=== PATIENT | male | born 1975 | race African-American/Black ===

== ENCOUNTER 2024-12-26 18:30 | Emergency (ER) | payer OTHER, SELFPAY ==
[2024-12-26] MEDS ORDERED: Ibuprofen 200 MG TAB ONE (19:23)
[2024-12-26 19:37] LABS: #Basophils 0.0 thou/uL (0.0-0.2); #Eosinophils 0.1 thou/uL (0.0-0.7); #Lymphocytes 1.7 thou/uL (1.20-3.40); #Monocytes 0.2 thou/uL (0.11-0.59); #Neutrophils 2.9 thou/uL (1.40-6.50); %Basophils 0.5 % (0.0-1.0); %Eosinophils 1.9 % (0.0-10.0); %Lymphocytes 34.4 % (21.0-51.0); %Monocytes 4.8 % (0.0-10.0); %Neutrophils 58.4 % (42.0-75.0); Hematocrit 42.7 % (42.0-52.0); Hemoglobin 15.5 g/dL (14.0-18.0); Mean Corpuscular Hemoglobin 30.6 pg (27.0-31.0); Mean Corpuscular Volume 84.5 fl (78.0-98.0); Platelet Count 198 10x3/uL (130-400); Red Blood Cell (RBC) Count 5.05 mill/uL (4.70-6.10); White Blood Cell (WBC) Count 5.0 10x3/uL (4.8-10.8)
[2024-12-26 19:40] LABS: ALT (SGPT) 20 U/L (Less than 45); AST (SGOT) 27 U/L (11-34); Albumin 4.0 g/dL (3.1-4.5); Alkaline Phosphatase 48 U/L (40-110); Anion Gap 15 mmol/L (10-20); BUN (Urea Nitrogen) 5 mg/dL (8.9-20.6); Bilirubin, Total 0.7 mg/dL (0.3-1.2); Calc. Creatinine Clearance 0 mL/min (70-130); Calcium 8.6 mg/dL (7.8-10.44); Carbon Dioxide 35 mmol/L (22-29); Chloride 92 mmol/L (98-107); Globulin 4.2 g/dL (2.4-3.5); Glucose 316 mg/dL (70-105); Magnesium 1.2 mg/dL (1.6-2.6); Sodium 139 mmol/L (136-145)
[2024-12-26 19:42] LABS: Potassium 2.5 mmol/L (3.5-5.1)
[2024-12-26 19:43] LABS: Bicarbonate (HCO3v) 37.3 mmol/L (22.0-28.0); CO2 Tension (PvCO2) 58.1 mmHg (42.0-51.0); Calcium, Ionized 1.08 mmol/L (1.15-1.33); Chloride 94 mmol/L (98-107); Hemoglobin - Calc 14.8 g/dL (14.0-18.0); Potassium 2.4 mmol/L (3.5-5.1); Sodium 141 mmol/L (138-145); T. Carbon Dioxide 39.1 mmol/L (22.0-28.0); vO2 Saturation-calc 53.3 % (60.0-85.0)
[2024-12-26 19:49] LABS: Glucose, Urine (Dipstick) >=1000 mg/dL (Negative); Leukocyte Negative (Negative); Protein, Urine (Dipstick) 100 mg/dL (Neg-Trace); Specific Gravity, Urine 1.010 (1.005-1.030)
[2024-12-26] MEDS ORDERED: cloNIDine 0.1 MG TAB ONE (19:53)
[2024-12-26 20:01] LABS: CAUTI Indications for Culture Dysuria,urgency,freq; RBC/HPF None Seen HPF (0-3); WBC/HPF 0-3 HPF (0-3)
[2024-12-26 20:02] LABS: Urine Culture Reflex No No
[2024-12-26] MEDS ORDERED: NS 0.9% w/ 20 MEQ KCL 1,000 ML ONE (20:11)
== END 2024-12-26 22:38 | disposition home or self-care (01) ==
LOC: NAV ERS 18:30
DX: E10.65 Type 1 diabetes mellitus with hyperglycemia (principal); E87.6 Hypokalemia; I10 Essential (primary) hypertension; F17.220 Nicotine dependence, chewing tobacco, uncomplicated; Z79.84 Long term (current) use of oral hypoglycemic drugs
CPT/HCPCS: 36416; 80053; 81001; 82330; 82803; 83605; 83735; 85025; 93005; 96374; J3480